=== PATIENT | male | born 1990 | race Caucasian/White ===

== ENCOUNTER 2016-11-05 15:36 | Emergency (ER) | payer OTHER ==
[~2016-11-05] VITALS: Ht 167.6 cm; Wt 85.3 kg
[2016-11-05] MEDS ORDERED: NAPR500T2 PO (15:58)
--- NOTE | 2016-11-05 16:50 | REP ---
CT Head without contrast HISTORY: Syncope COMPARISON: None There is no intraparenchymal hemorrhage, acute infarct, mass or midline shift. The ventricular system is normal in appearance. There is no extra cerebral collection. There is no fracture. The visualized sinuses are clear. IMPRESSION: There is no intracranial lesion. Signed by Carlos Rojas MD 11/05/2016 04:41 P
[2016-11-05 17:13] LABS: BASO % 0.4 % (0.0-1.0); EOS # 0.1 K/mm3 (0.0-0.50); EOS % 1.5 % (0.0-3.0); LARGE UNSTAINED CELL # 0.1 K/mm3 (0.0-0.4); LARGE UNSTAINED CELL % 1.4 % (0.0-4.0); LYMPH # 1.1 K/mm3 (1.5-6.5); LYMPH % 15.5 % (24.0-44.0); MEAN CORPUSCULAR HEMOGLOBIN 29.6 pg (27.0-33.0); MEAN CORPUSCULAR HGB CONC 35.6 g/dl (32.0-36.5); MEAN CORPUSCULAR VOLUME 83.3 fl (80.0-96.0); MONO # 0.5 K/mm3 (0.0-0.8); MONO % 6.8 % (0.0-5.0); NEUTROPHILS # 5.2 K/mm3 (1.8-7.7); NEUTROPHILS % 74.4 % (36.0-66.0); PLATELET COUNT, AUTOMATED 232 k/mm3 (150-450)
[2016-11-05 17:40] LABS: ANION GAP 7 MEQ/L (8-16); BLOOD UREA NITROGEN 14 MG/DL (7-18); CALCIUM LEVEL 8.9 MG/DL (8.5-10.1); CARBON DIOXIDE LEVEL 30 MEQ/L (21-32); CHLORIDE LEVEL 104 MEQ/L (98-107); CREATININE FOR GFR 1.13 MG/DL (0.70-1.30); GLOMERULAR FILTRATION RATE > 60.0 (>60); GLUCOSE, FASTING 93 MG/DL (70-105); POTASSIUM SERUM 3.8 MEQ/L (3.5-5.1); SODIUM LEVEL 141 MEQ/L (136-145)
[2016-11-05 19:33] VITALS: BP 143/90
[2016-11-05] MEDS ORDERED: NS 500 ML IV ONE (20:00)
[2016-11-05 20:33] LABS: GLUCOSE CSF 59 MG/DL (40-75)
[2016-11-05 20:44] LABS: RBC CSF AUTO 59 /mm3 (0-0); WBC CSF AUTO 3 /mm3 (0-10)
[2016-11-05 20:46] LABS: APPEARANCE, CSF CLEAR (CLEAR); COLOR, CSF COLORLESS (COLORLESS); CSF DIFF IF INDICATED? NO (NO); CSF TUBE# CELL CNT TUBE 1; RBC CSF AUTO 1 /mm3 (0-0); WBC CSF AUTO 1 /mm3 (0-10)
[2016-11-05 20:47] LABS: APPEARANCE, CSF CLEAR (CLEAR); COLOR, CSF COLORLESS (COLORLESS); CSF DIFF IF INDICATED? NO (NO); CSF DILUENT LOT # 6165; CSF TUBE# CELL CNT TUBE 4
[2016-11-05 20:48] LABS: CSF DILUENT LOT # 6165
--- NOTE | 2016-11-06 06:38 | REP ---
PORTABLE CHEST, SINGLE VIEW: There is no evidence of acute infiltrate. No pleural effusion is seen. The heart is normal in size. The mediastinal silhouette is unremarkable. The visualized osseous structures are intact. IMPRESSION: No acute pulmonary disease. Signed by Carlos Gamez MD 11/06/2016 03:51 P
--- NOTE | 2016-11-07 13:27 | ECGEPIP ---
Stationary ECG Study [facility] - ED Test Date: 2016-11-05 Pat Name: GURU NELSON Department: Room: - Gender: [employer] Consult[employer]: diane : 1990 Requested By: LOEPZ Clemente Order Number: [id number] Reading MD: Mariah Davila Measurements Intervals [place] Rate: 59 P: 59 [place]: 150 QRS: 28 QRSD: 101 T: 11 QT: 383 QTc: 382 Interpretive Statements SINUS BRADYCARDIA NO PRIOR FOR COMPARISON Electronically Signed On 11-07-2016 13:27:38 EST by Mariah Davila
== END 2016-11-05 22:00 | disposition home or self-care (01) ==
LOC: EDBD 15:36 → M ED 18:00
DX: R55 Syncope and collapse (principal); R51 Headache; I10 Essential (primary) hypertension; Z82.3 Family history of stroke; M25.562 Pain in left knee; F17.220 Nicotine dependence, chewing tobacco, uncomplicated

== ENCOUNTER 2016-11-07 10:57 | Emergency (ER) | payer OTHER ==
[~2016-11-07] VITALS: Ht 167.6 cm; Wt 85.3 kg
[~2016-11-07 10:57] MED LIST: NAPR500T2 PO
[2016-11-07] MEDS ORDERED: ALEV220C2 PO (11:15)
[2016-11-07] MEDS ORDERED: FIOR1CAP PO (14:04)
[2016-11-07 14:10] VITALS: BP 144/66
== END 2016-11-07 14:23 | disposition home or self-care (01) ==
LOC: M ED 12:46
DX: G97.1 Other reaction to spinal and lumbar puncture (principal)

== ENCOUNTER 2016-12-07 20:04 | Emergency (ER) | payer OTHER ==
[~2016-12-07] VITALS: Ht 167.6 cm; Wt 86.2 kg
[~2016-12-07 20:04] MED LIST changes: +ALEV220C2 PO; +FIOR1CAP PO
[2016-12-07] MEDS ORDERED: OXYCODONE/APAP 5MG/325MG(BULK FOR ED) 1 TABLET PO ONE (20:45)
[2016-12-07] MEDS ORDERED: PERCOCET 5MG/325MG TAB PO ONE (20:45)
--- NOTE | 2016-12-07 21:30 | REPUSA ---
CT of the head Clinical history: Headache. Trauma. Comparison: 11/05/2016. Technique: Multiple axial CT images were obtained through the head without administration of contrast . Findings: The ventricles and sulci are symmetric bilaterally. There is no evidence of acute hemorrhag e or infarct. There is no midline shift, mass effect, or extra-axial fluid collection. The osseous st ructures are unremarkable. The visualized paranasal sinuses and mastoid air cells are clear. Impression: Negative study.
--- NOTE | 2016-12-07 21:40 | REPUSA ---
CT of the cervical spine Clinical history: Pain. Trauma. Technique: Multiple axial CT images were obtained through the cervical spine without administration o f contrast. Coronal and sagittal 3-D reconstructed images were also obtained. Comparison: None. Findings: The cervical vertebral bodies are in satisfactory positioning and alignment. No fractures or dislocat ions are demonstrated. The odontoid process is intact. Intervertebral disc spaces are well-maintained . There is no evidence of facet subluxation. The neural foramen appear grossly patent. The cervical c ranial junction is intact. The cervical spinal canal demonstrates normal caliber and contour without evidence of spinal stenosis. The surrounding soft tissues are within normal limits. Impression: Unremarkable CT examination of the cervical spine.
--- NOTE | 2016-12-07 21:40 | REPUSA ---
CT of the facial bones without contrast Clinical history: Pain, injury. Technique: Multiple axial CT images were obtained through the facial bones and paranasal sinuses util izing 3 mm axial slices without administration of contrast. Coronal and sagittal reconstructions were also obtained. Findings: The visualized paranasal sinuses are clear. The osteomeatal complexes are patent bilaterall y. The nasal septum is midline. The visualized mastoid air cells are clear. The osseous structures do not demonstrate any acute abnormalities. The superficial soft tissues are within normal limits. Impression: Unremarkable CT examination of the facial bones and paranasal sinuses.
[2016-12-08 00:18] VITALS: BP 118/58
--- NOTE | 2016-12-08 07:54 | REP ---
Left knee five views l : There is no fracture or dislocation. Mineralization and joint spaces are normal. There are no calcifications or foreign bodies. Impression: Negative Left knee . Signed by Carlos España MD 12/08/2016 07:46 A
== END 2016-12-08 00:22 | disposition home or self-care (01) ==
LOC: M ED 21:07
DX: S06.0X0A Concussion without loss of consciousness, initial encounter (principal); S00.81XA Abrasion of other part of head, initial encounter; W10.9XXA Fall (on) (from) unspecified stairs and steps, initial encounter; Y92.019 Unspecified place in single-family (private) house as the place of occurrence of the external cause; Y93.01 Activity, walking, marching and hiking; Y99.8 Other external cause status; M25.562 Pain in left knee

== ENCOUNTER 2021-04-23 19:42 | Emergency (ER) | payer OTHER ==
[~2021-04-23] VITALS: Ht 165.1 cm; Wt 84.1 kg
[~2021-04-23 19:42] MED LIST changes: +NAPR-885 PO; -NAPR500T2 PO
[2021-04-24] MEDS ORDERED: SUCRALFATE 1 GM TAB PO ONE (01:15)
[2021-04-24] MEDS ORDERED: PANTOPRAZOLE 40MG VIAL (C9113 PER 1) IV ONE (01:15)
[2021-04-24] MEDS ORDERED: GI COCKTAIL 50ML BTL(HYOSCYAMINE/MAALOX/LIDOCAINE VISCOUS)(1:3:1) PO ONE (01:15)
[2021-04-24 01:26] LABS: BASO % 0.2 % (0.0-1.0); EOS # 0.1 10^3/uL (0.0-0.5); EOS % 2.3 % (0.0-3.0); HEMATOCRIT 44.8 % (42.0-52.0); HEMOGLOBIN 15.8 g/dl (13.5-17.5); LYMPH # 0.6 10^3/uL (1.5-5.0); LYMPH % 10.2 % (24.0-44.0); MEAN CORPUSCULAR HEMOGLOBIN 29.6 pg (27.0-33.0); MEAN CORPUSCULAR HGB CONC 35.3 g/dl (32.0-36.5); MEAN CORPUSCULAR VOLUME 84.1 fl (80.0-96.0); MONO # 0.6 10^3/uL (0.0-0.8); MONO % 9.7 % (2.0-8.0); NEUTROPHILS # 4.7 10^3/uL (1.5-8.5); NEUTROPHILS % 77.3 % (36.0-66.0); PLATELET COUNT, AUTOMATED 206 10^3/uL (150-450); RED BLOOD COUNT 5.33 10^6/uL (4.30-6.10); WHITE BLOOD COUNT 6.1 10^3/uL (4.0-10.0)
[2021-04-24] MEDS ORDERED: PANTOPRAZOLE 40MG TAB (PROTONIX) PO ONE (01:30)
[2021-04-24] MEDS ORDERED: OMEP40CA4 PO (02:26)
[2021-04-24] MEDS ORDERED: CARA1TAB6 PO (02:26)
[2021-04-24 02:35] VITALS: BP 121/68
== END 2021-04-24 02:38 | disposition home or self-care (01) ==
LOC: M ED 19:42
DX: R10.13 Epigastric pain (principal); R20.8 Other disturbances of skin sensation; R07.0 Pain in throat; R11.0 Nausea; R51.9 Headache, unspecified; K21.9 Gastro-esophageal reflux disease without esophagitis